=== PATIENT | female | born 1985 | race Caucasian/White ===

== ENCOUNTER 2022-05-02 20:25 | Emergency (ER) | payer OTHER ==
[~2022-05-02] VITALS: Ht 162.6 cm; Wt 54.0 kg
--- NOTE | 2022-05-02 20:40 | NUR ---
Dr. Strong at [facility]. [facility] [place].
[2022-05-02 21:37] LABS: HEMATOCRIT 35.2 % (31.2-41.9); MEAN CORPUSCULAR HEMOGLOBIN 29.9 uug (24.7-32.8); MEAN CORPUSCULAR VOLUME 90.3 fL (75.5-95.3); PLATELET COUNT (AUTO) 341 K/uL (179-408)
[2022-05-02 21:47] LABS: CREATININE 0.8 mg/dL (0.6-1.3); POTASSIUM 3.8 mmol/L (3.5-5.1)
[2022-05-02 21:51] LABS: *BILIRUBIN,URIN NEGATIVE (NEGATIVE); *BLOOD, URINE 3+ (NEGATIVE); *CLARITY,URINE CLEAR (CLEAR); *COLOR,URINE YELLOW (YELLOW); *KETONES,URINE NEGATIVE (NEGATIVE); *UROBILINOGEN,URINE 0.2 E.U./dl (NORMAL); LEUKOCYTE ESTERASE ,URINE NEGATIVE (NEGATIVE); NITRITE, URINE NEGATIVE (NEGATIVE); PH,URINE 5.5 (5.0-8.0); UGLUCOSE NEGATIVE (NEGATIVE)
--- NOTE | 2022-05-02 21:57 | NUR ---
X-ray completed at bedside.
[2022-05-02 21:59] LABS: *URINE HCG, QUAL NEGATIVE (NEGATIVE); BACTERIA,URINE NONE SEEN /HPF (NONE SEEN); SQUAMOUS EPITHELIAL CELL,UR FEW /HPF (NONE SEEN); WBC,URINE 0-3 /HPF (0-3)
[2022-05-02 22:01] LABS: BILIRUBIN,DIRECT 0.1 mg/dL (0.0-0.2); BILIRUBIN,TOTAL 0.4 mg/dL (0.2-1.0); TOTAL PROTEIN, SERUM 7.2 g/dL (6.4-8.2)
[2022-05-02] MEDS ORDERED: IV NORMAL SALINE 250 ML IV ONE (22:02)
[2022-05-02] MEDS ORDERED: SWABABLE VALVE TRANSFER SET EA MC ONE (22:02)
[2022-05-02] MEDS ORDERED: IOHEXOL 350 100 ML INFUS..BTL ONE (22:03)
--- NOTE | 2022-05-02 23:53 | NUR ---
CALLED [facility] FOR SURGICAL CONSULT [facility] SPOKED WITH MD VIA PHONE .
--- NOTE | 2022-05-02 23:56 | NUR ---
DR:ADAMA AT [facility] AND DISCUSSED PLAN OF TREATMENT WITH PATIENT .
--- NOTE | 2022-05-03 00:10 | NUR ---
Patient discharged to home with bf in stable condition. [id number] ambulatory,Written and verbal after care instructions given. no acute distress noted ,all belongings with patient . Patient verbalizes understanding of instructions. Stressed follow up or return to ER for worsening s/s.
[2022-05-03 00:11] VITALS: BP 110/66
== END 2022-05-03 00:12 | disposition home or self-care (01) ==
LOC: ER 20:25
DX: R10.9 Unspecified abdominal pain (principal); M54.9 Dorsalgia, unspecified; Z98.84 Bariatric surgery status; Z90.49 Acquired absence of other specified parts of digestive tract
CPT/HCPCS: 99285; 74177; 71045; 80076; 80048; 81001; 84703; 83690; 85025; 85379; 36415; 93005; Q9967; A4663